=== PATIENT | female | born 2000 | race Caucasian/White ===

== ENCOUNTER 2018-09-06 20:04 | Emergency (ER) | payer BC, OTHER ==
[~2018-09-06] VITALS: Ht 162.6 cm; Wt 99.8 kg
--- OUTSIDE RECORDS SUMMARY | 2018-09-06 20:07 | XMS REPORT | Summary of Care ---
Author Author Rossana Gaines M.A. Organization Unknown Address [facility] Phone Unavailable Care Team Providers Care Psychologist Experimental Name Role Phone Rossana Gaines M.A. Unavailable Unavailable Unavailable Unavailable Functional Status Name Dates Details Functional status health issues are not documented Status: Name Dates Details Cognitive status health issues are not documented Status: Problems Name Dates Details Anxiety and depression (300.00, F41.8) Status: Active Tuberculosis screening (V74.1, Z11.1) Status: Active Immunity status testing (V72.61, Z01.84) Status: Active Obesity (BMI 30-39.9) (278.00, E66.9) Status: Active Menses, irregular (626.4, N92.6) Status: Active Influenza vaccine needed (V04.81, Z23) Status: Active Need for Tdap vaccination (V06.1, Z23) Status: Active Encounter to establish care (V65.8, Z76.89) Status: Active Medications Name Dates Details MedroxyPROGESTERone Acetate TABS Active BuPROPion HCl - 100 MG Oral Tablet TAKE 1 TABLET DAILY. * Refills: 0 * Start : 07-Sep-2017 Active CloNIDine HCl - 0.1 MG Oral Tablet TAKE 1 TABLET BY MOUTH EVERY DAY * Quantity: 90 Refills: 1 * Start : 07-Sep-2017 Active LamoTRIgine ER 300 MG Oral Tablet Extended Release 24 Hour TAKE 1 TABLET DAILY * Refills: 0 * Start : 07-Sep-2017 Active Allergies and Adverse Reactions Name Dates Details No Known Drug Allergies (Allergy) Status: Active Past Medical History Name Dates Details History of depression (V11.8, Z86.59) Status: Resolved Procedures Procedure Dates Details History of nail avulsion procedure Completed Immunization Name Dates Details Tdap Lot #: [id number] on: 07-Sep-2017 Fluzone Quadrivalent 0.5 ML Intramuscular Suspension Lot #: [id number] on: 07-Sep-2017 Family History Name Dates Details Family history of hyperlipidemia (V18.19, Z83.49) Status: Active Name Dates Details Family history of diabetes mellitus (V18.0, Z83.3) Status: Active Name Dates Details Family history of Alive and well Status: Active Name Dates Details Family history of Alive and well Status: Active Social History Name Dates Details - Status: Name Dates Details Never smoker Vital Signs Date Test Result Details :50 BP Systolic 116 mm[Hg] Status: Comments: Location: LUE; Position: Sitting BP Diastolic 74 mm[Hg] Status: Comments: Location: LUE; Position: Sitting Height 64 in Status: Physical Findings 46 Status: Comments: 2-20 Stature Percentile Weight 214.125 lb Status: Body Mass Index Calculated 36.75 kg/m2 Status: Body Surface Area Calculated 2.01 m2 Status: Physical Findings 99 Status: Comments: 2-20 Weight Percentile Physical Findings 99 Status: Comments: BMI Percentile Temperature 97.6 f Status: Comments: Method: Temporal Respiration Rate 16 /min Status: Heart Rate 67 /min Status: Results Date Description Value Details [id number] Tobacco Use Screening Completed DONE [id number] [[facility]] LIPID PANEL CHOLESTEROL, TOTAL 144 mg/dl (Normal) Range: <170 HDL CHOLESTEROL 30 mg/dl (Below low threshold) Range: >45 TRIGLYCERIDES 125 mg/dl (Above high threshold) Range: <90 LDL-CHOLESTEROL 91 {MG/DL__CAL} (Normal) Range: <110 Comments: LDL-C is now calculated using the Ludmila calculation, which is a validated novel method providing better accuracy than the Friedewald equation in the estimation of LDL-C. Harish RHOADES et al. JAIRO. 2013;310(19): 2947-4471 (http://education.[employer].com/faq/FKQ991) CHOL/HDLC RATIO 4.8 {CALC} (Normal) Range: <5.0 NON HDL CHOLESTEROL 114 {MG/DL__CAL} (Normal) Range: <120 Comments: For patients with diabetes plus 1 major ASCVD risk factor, treating to a non-HDL-C goal of <100 mg/dL (LDL-C of <70 mg/dL) is considered a therapeutic option. :31 [Q] HEPATITIS PANEL (REFL) HEPATITIS B SURFACE ANTIGEN NON-REACTIVE (Normal) Range: NON-REACTIVE HEPATITIS B SURFACE ANTIBODY QL NON-REACTIVE (Normal) Range: NON-REACTIVE HEPATITIS B CORE AB TOTAL (REFL) NON-REACTIVE (Normal) Range: NON-REACTIVE HEPATITIS C ANTIBODY NON-REACTIVE (Normal) Range: NON-REACTIVE SIGNAL TO CUT-OFF 0.01 (Normal) Range: <1.00 HEPATITIS A AB, TOTAL (REFL) REACTIVE (Abnormal) Range: NON-REACTIVE [id number] [[facility]] CMP W/EGFR GLUCOSE 80 mg/dl (Normal) Range: 65-99 Comments: Fasting reference interval UREA NITROGEN (BUN) 16 mg/dl (Normal) Range: 7-20 CREATININE 0.80 mg/dl (Normal) Range: 0.50-1.00 eGFR NON- 108 {ML/MIN/1.7} (Normal) Range: > OR=60 eGFR 125 {ML/MIN/1.7} (Normal) Range: > OR=60 BUN/CREATININE RATIO NOT APPLICABLE {CALC} Range: 6-22 SODIUM 135 mmol/L (Normal) Range: 135-146 POTASSIUM 3.9 mmol/L (Normal) Range: 3.8-5.1 CHLORIDE 101 mmol/L (Normal) Range: 98-110 CARBON DIOXIDE 28 mmol/L (Normal) Range: 20-31 CALCIUM 9.7 mg/dl (Normal) Range: 8.9-10.4 PROTEIN, TOTAL 7.7 g/dl (Normal) Range: 6.3-8.2 ALBUMIN 4.5 g/dl (Normal) Range: 3.6-5.1 GLOBULIN 3.2 {G/DL__CALC} (Normal) Range: 2.0-3.8 ALBUMIN/GLOBULIN RATIO 1.4 {CALC} (Normal) Range: 1.0-2.5 BILIRUBIN, TOTAL 0.3 mg/dl (Normal) Range: 0.2-1.1 ALKALINE PHSPHATASE 79 u/l (Normal) Range: 47-176 AST 16 u/l (Normal) Range: 12-32 ALT 15 u/l (Normal) Range: 5-32 [id number] [[facility]] CBC (INCLUDES DIFF/PLT) WHITE BLOOD CELL COUNT 6.9 {Thousand/u} (Normal) Range: 4.5-13.0 RED BLOOD CELL COUNT 4.03 {Million/uL} (Normal) Range: 3.80-5.10 HEMOGLOBIN 11.6 g/dl (Normal) Range: 11.5-15.3 HEMATOCRIT 34.8 % (Normal) Range: 34.0-46.0 MCV 86.4 fL (Normal) Range: 78.0-98.0 MCH 28.8 pg (Normal) Range: 25.0-35.0 MCHC 33.3 g/dl (Normal) Range: 31.0-36.0 RDW 13.5 % (Normal) Range: 11.0-15.0 PLATELET COUNT 362 {Thousand/u} (Normal) Range: 140-400 MPV 8.7 fL (Normal) Range: 7.5-12.5 ABSOLUTE NEUTROPHILS 3747 {cells/uL} (Normal) Range: 9529-3375 ABSOLUTE LYMPHOCYTES 2512 {cells/uL} (Normal) Range: 7306-8608 ABSOLUTE MONOCYTES 511 {cells/uL} (Normal) Range: 200-900 ABSOLUTE EOSINOPHILS 69 {cells/uL} (Normal) Range: 15-500 ABSOLUTE BASOPHILS 62 {cells/uL} (Normal) Range: 0-200 NEUTROPHILS 54.3 % (Normal) LYMPHOCYTES 36.4 % (Normal) MONOCYTES 7.4 % (Normal) EOSINOPHILS 1.0 % (Normal) BASOPHILS 0.9 % (Normal) [id number] [[facility]] TSH, 3RD GENERATION W/REFLEX TO FT4 TSH, 3RD GENERATION W/REFLEX TO FT4 1.83 {MIU/L} (Normal) Comments: Reference Range 1-19 Years 0.50-4.30 Ranges First trimester 0.26-2.66 Second trimester 0.55-2.73 Third trimester 0.43-2.91 [id number] [Q] VARICELLA-ZOSTER VIRUS AB (IMMUNITY SCR),ACIF (S) VARICELLA-ZOSTER, ACIF >=1:4 (Abnormal) Comments: REFERENCE RANGE: <1:4 INTERPRETIVE CRITERIA: <1:4 Antibody Not Detected - evidence for susceptibility to VZV infection. > or=1:4 Antibody Detected - evidence for immunity against VZV infection. A positive titer (greater than or equal to 1:4)indicates a history of VZV infection orvaccination. In infected individuals, this test isusually positive within 2 days after the onset ofrash and is thereafter positive for life. Theabsence of detectable antibody may indicatesusceptibility to VZV infection. This test was developed and its analytical performancecharacteristics have been determined by [facility]. It has not been cleared or approved byA. This assay has been validated pursuant to the CLIAregulations and is used for clinical purposes. [id number] [[facility]] QUANTIFERON(R)-TB GOLD Comments: REPORT COMMENT:FASTING:YES QUANTIFERON(R)-TB GOLD NEGATIVE (Normal) Range: NEGATIVE Comments: Negative test result. M. tuberculosis complex infection unlikely. NIL 0.06 {IU/ml} (Normal) MITOGEN-NIL >10.00 {IU/ml} (Normal) TB-NIL <0.00 {IU/ml} (Normal) Comments: The Nil tube value is used to determine if the patienthas a preexisting immune response which could cause a false- positive reading on the test. In order for a test to be valid, the Nil tube must have a value of less than or equal to 8.0 IU/mL. The mitogen control tube is used to assure the patient has a healthy immune status and also serves as a control for correct blood handling and incubation. It is used to detect false- negative readings. The mitogen tube must have a gamma interferon value of greater than or equal to 0.5 IU/mL higher than the value of the Nil tube. The TB antigen tube is coated with the M. tuberculosisspecific antigens. For a test to be considered positive, the TB antigen tube value minus the Nil tube value must be greater than or equal to 0.35 IU/mL. For additional information, please refer to http://education.[employer]/faq/QFT(This link is being provided for informational/educational purposes only.) Plan of Care Name Dates Details Planned Observations Planned Goals not documented Instructions Name Dates Details Instructions not documented Encounters Appointment; RAE YA P.A. Encounter Diagnosis: Problem not documented On: 07-Sep-2017 10:00
[2018-09-06 21:20] LABS: BASOPHILS # (AUTO) 0.1 (0.0-0.1); BASOPHILS % 0.7 % (0.0-1.0); EOSINOPHILS # (AUTO) 0.1 (0.0-0.4); EOSINOPHILS % 1.1 % (0.0-6.0); HEMATOCRIT 36.6 % (34.2-44.1); HEMOGLOBIN 12.6 g/dL (12.0-16.0); LYMPHOCYTES # (AUTO) 2.4 (1.0-3.2); LYMPHOCYTES % 26.7 % (18.0-39.1); MEAN CORPUSCULAR HEMOGLOBIN 30.3 pg (28-32); MEAN CORPUSCULAR HGB CONC 34.4 g/dL (31-35); MONOCYTES # (AUTO) 0.7 (0.2-0.8); MONOCYTES % 7.9 % (4.4-11.3); NEUTROPHILS # (AUTO) 5.6 (2.1-6.9); NEUTROPHILS % 63.4 % (38.7-80.0); PLATELET COUNT 313 x10e3/uL (140-360); RED BLOOD COUNT 4.16 x10e6/uL (3.6-5.1); RED CELL DISTRIBUTION WIDTH 11.9 % (11.7-14.4)
[2018-09-06 21:34] LABS: ALANINE AMINOTRANSFERASE 39 IU/L (0-55); ALBUMIN 4.4 g/dL (3.5-5.0); ALBUMIN/GLOBULIN RATIO 1.2 (0.8-2.0); ALKALINE PHOSPHATASE 67 IU/L (40-150); ANION GAP 11.6 mmol/L (8-16); BLOOD UREA NITROGEN 18 mg/dL (7-26); BUN/CREATININE RATIO 20 (6-25); CALCIUM 9.8 mg/dL (8.4-10.2); CARBON DIOXIDE 28 mmol/L (22-29); CHLORIDE 102 mmol/L (98-107); CREATINE KINASE 93 IU/L (29-168); CREATININE, SERUM 0.92 mg/dL (0.57-1.11); EST GLOMERULAR FILTRATION RATE > 60 ML/MIN (60-); GLUCOSE 114 mg/dL (74-118); POTASSIUM 3.6 mmol/L (3.5-5.1); SODIUM 138 mmol/L (136-145)
--- NOTE | 2018-09-06 21:37 | Diagnostic Imaging Report ---
EXAMINATION: Head CT without contrast. HISTORY:Trauma, fall. COMPARISON:None. TECHNIQUE: Multidetector axial images were obtained from the foramen magnum to the vertex without contrast. The images were reconstructed using brain and bone algorithms. Thin section brain images were reformatted into coronal and sagittal planes. Dose modulation, iterative reconstruction, and/or weight based adjustment of the mA/kV was utilized to reduce the radiation dose to as low as reasonably achievable. Intravenous contrast: None IMAGE QUALITY: Acceptable. FINDINGS: Skull/scalp: No lytic or blastic. lesions. No surgical changes. Parenchyma: No abnormal density. No acute hemorrhage, mass or acute major vascular territorial infarct. Arteries: No density suggestive of thrombosis. Dural sinuses: No abnormal density suggestive of thrombosis. Ventricles: No hydrocephalus or displacement. Extra-axial spaces: No abnormal density. Brain volume: Normal for age. Craniocervical junction: No mass, Chiari malformation, or basilar invagination. Sella: No mass. Paranasal/mastoid sinuses: Imaged portions unremarkable. IMPRESSION: No intracranial abnormality. Signed by: Dr. Lindy Leo M.D. on 09/06/2018 9:34 PM
--- NOTE | 2018-09-06 21:40 | Diagnostic Imaging Report ---
History: Trauma, fall. Comparison studies: None Technique: Axial images were obtained through the cervical region.. Coronal and sagittal images reconstructed from the axial data. Dose modulation, iterative reconstruction, and/or weight based adjustment of the mA/kV was utilized to reduce the radiation dose to as low as reasonably achievable. Intravenous contrast: None Findings: Fractures: None. Soft tissue injuries: None. Atlantoaxial articulation: Intact. Alignment: Loss of normal cervical lordosis is either positional or due to muscle spasm. No scoliosis. Cervicomedullary junction: No abnormalities. The foramen magnum is patent. Soft tissues: No abnormalities. Vertebrae: No fractures, infection or neoplasm. Degenerative changes: None. IMPRESSION: 1. No acute cervical spine fracture or dislocation. Loss of normal cervical lordosis is either positional or due to muscle spasm. 2. Ligament, spinal cord and or vascular abnormalities cannot be excluded on the basis of this examination. Signed by: Dr. Lindy Leo M.D. on 09/06/2018 9:37 PM
--- NOTE | 2018-09-06 21:48 | Diagnostic Imaging Report ---
History:Trauma, fall. Comparison studies: None Technique: Axial images were obtained through the maxillofacial region. Coronal and sagittal images reconstructed from the axial data. Dose modulation, iterative reconstruction, and/or weight based adjustment of the mA/kV was utilized to reduce the radiation dose to as low as reasonably achievable. Intravenous contrast: None Findings: Soft tissues: Moderate premandibular and premaxillary soft tissue edema/hematoma. Mild perimandibular subcutaneous soft tissue emphysema. Punctate radiopaque densities in mid lower lip possibly represents foreign body or debris. Bones: Acute mildly anteriorly displaced fracture of left paramedian aspect of the maxillary alveolar margin associated with avulsion of left maxillary incisors. Chip fracture of right maxillary central incisor. Orbits: Globes: Intact Extra or intraconal abnormalities: None. Paranasal sinuses: Clear IMPRESSION: 1. Moderate perimandibular and premaxillary soft tissue edema/hematoma and minimal perimandibular soft tissue emphysema. 2. Lower lip superficial foreign body vs debris. 3. Acute comminuted and displaced fracture of maxillary alveolar margin associated with avulsion of left maxillary incisors and chip fracture of right maxillary central incisor. Signed by: Dr. Lindy Leo M.D. on 09/06/2018 9:45 PM
[2018-09-06] MEDS ORDERED: TRAMADOL HCL 50 MG TAB PO ONE (22:30)
[2018-09-06 23:31] LABS: AMPHETAMINES SCREEN,URINE NEGATIVE (NEGATIVE); BENZODIAZEPINES SCREEN,URINE NEGATIVE (NEGATIVE); PHENCYCLIDINE SCREEN,URINE NEGATIVE (NEGATIVE)
[2018-09-06 23:32] LABS: CLARITY,URINE CLEAR (CLEAR); COLOR,URINE YELLOW (YELLOW)
[2018-09-06 23:33] LABS: BILIRUBIN,URINE NEGATIVE (NEGATIVE); KETONES,URINE NEGATIVE (NEGATIVE); LEUKOCYTE ESTERASE ,URINE NEGATIVE (NEGATIVE); NITRITE,URINE NEGATIVE (NEGATIVE); PREGNANCY TEST, URINE NEGATIVE (NEGATIVE); PROTEIN,URINE DIPSTICK NEGATIVE (NEGATIVE); URINE UROBILINOGEN 0.2 mg/dL (0.2 - 1)
[2018-09-06 23:54] LABS: EPITHELIAL CELLS,URINE FEW /LPF; WBC,URINE (MAN) 0-5 /HPF (0-5)
[2018-09-06 23:55] LABS: BACTERIA,URINE MODERATE /HPF
--- NOTE | 2018-09-07 | NUR ---
inside lower lip closed with sutures, outside lip closed with dermabond. wound closure per cesar parsons. pt tolerated well, awake alert skin w/d resp non lab. nad noted.
== END 2018-09-07 00:20 | disposition home or self-care (01) ==
LOC: ER 20:04
DX: R55 Syncope and collapse (principal); S01.511A Laceration without foreign body of lip, initial encounter; R51 Headache; W18.30XA Fall on same level, unspecified, initial encounter; Y92.008 Other place in unspecified non-institutional (private) residence as the place of occurrence of the external cause; F41.9 Anxiety disorder, unspecified; F32.9 Major depressive disorder, single episode, unspecified
CPT/HCPCS: 36415; 70450; 70486; 72125; 80053; 80307; 81001; 81025; 82550; 82553; 84484; 85025; 93005; 99284